=== PATIENT | male | born 1985 | race Caucasian/White ===

== ENCOUNTER → 2021-05-18 09:17 | Outpatient (CLI) | payer OTHER, SELFPAY ==
--- NOTE | ~2021-05-18 | XR_ITS ---
EXAMINATION: XR knee RT 3V DATE: 05/18/2021 09:40 INDICATION: Right knee pain. TECHNIQUE: 3 views of right knee including standing views were obtained. COMPARISON: None. FINDINGS: Bone alignment is normal. No fracture. There is mild osteoarthritis of medial and patellofe moral compartments characterized by tiny osteophytes. No joint space narrowing. No knee joint effusio n. IMPRESSION: 1. Mild right knee osteoarthritis. Reviewed, dictated and finalized at location A.
== END ==
PROVIDERS: PCP Nurse Practitioner Family; Visit Provider Nurse Practitioner Family
DX: M25.561 Pain in right knee (principal); M17.11 Unilateral primary osteoarthritis, right knee
CPT/HCPCS: 73562

== ENCOUNTER 2021-11-27 09:03 | Emergency (ER) | payer OTHER, SELFPAY ==
--- NOTE | 2021-11-27 09:12 | ED.EAR ---
HPI - Ear Problem General Chief complaint: Ear Stated complaint: right ear pain Time Seen by Provider: 11/27/21 09:20 Source: patient Mode of arrival: ambulatory Limitations: no limitations History of Present Illness HPI Narrative: Mr. Slaughter is a 36-year-old male patient presenting to the clinic today with complaints of right ear pain that began this morning. He reports no fever or chills. Related Data Home Medications Medication Instructions Recorded Confirmed risankizumab-rzaa 150 mg/mL mg subcut 11/27/21 subcutaneous syringe (Skyrizi) Allergies Allergy/AdvReac Type Severity Reaction Status Date / Time No Known Allergies Allergy Unknown Verified 11/27/21 09:33 Review of Systems Review of Systems: Pertinent positives per HPI. Patient denies any fever, chills, rash, headache, visual changes, dizziness, cough, runny nose, sore throat, shortness of breath, chest pain, palpitations, nausea, vomiting, diarrhea, constipation, abdominal pain, or any urinary issues. PMFSH Comments At the time of my signature, I reviewed and agree with the nursing past medical, surgical, social, and family history. There is no relevant family history pertinent to the patient complaint. Exam Narrative: General: Well-developed, well nourished, in no apparent distress Head: Normocephalic, atraumatic Eyes: Pupils equally round and reactive to light bilaterally, EOM intact, sclera and conjunctive clear, no discharge, lids normal Ears: Left TM intact and clear, right TM intact, bulging, red with excoriation and swelling to the right ear canal, left ear canal clear, no drainage, grossly hearing normal. Nose: Nares patent, no discharge, no inflammation, no sinus tenderness. Mouth: Oropharynx without lesions or masses, good dentition, MMM. Neck: Supple, trachea midline, no enlargement of anterior or posterior cervical nodes, no thyroid masses or goiter palpable. Cardio: Regular rate and rhythm, s1 and s2 normal, no murmur appreciated. Resp: Clear to auscultation bilaterally anteriorly and posteriorly, no rhonchi, rales, wheezing or rubs Course Course Emergency Course: Portions of this record may have been created with voice recognition software. Level of Care: Express Care Visit Vital Signs Vital signs: Vital Signs Temperature 36.6 C 11/27/21 09:14 Pulse Rate 63 11/27/21 09:14 Respiratory Rate 20 11/27/21 09:14 Blood Pressure 146/91 H 11/27/21 09:14 Pulse Oximetry 99 11/27/21 09:14 Oxygen Delivery Room Air 11/27/21 09:14 Temperature 36.6 C 11/27/21 09:14 Pulse Rate 63 11/27/21 09:14 Respiratory Rate 20 11/27/21 09:14 Blood Pressure 146/91 H 11/27/21 09:14 Pulse Oximetry 99 11/27/21 09:14 Oxygen Delivery Room Air 11/27/21 09:14 Vital signs reviewed Medical Decision Making MDM Narrative Medical decision making narrative: At the time of visit patient is resting comfortably on the exam table. I suspect patient has right otitis media/otitis externa. We will send in prescription for amoxicillin and ofloxacin eardrops. Supportive measures were discussed with the patient he voiced understanding of discharge instructions and agrees to treat Differential Diagnosis Differential Diagnosis: Otalgia, otitis media, otitis externa Vital Signs Vital Signs: Vital Signs Temperature 36.6 C 11/27/21 09:14 Pulse Rate 63 11/27/21 09:14 Respiratory Rate 20 11/27/21 09:14 Blood Pressure 146/91 H 11/27/21 09:14 Pulse Oximetry 99 11/27/21 09:14 Oxygen Delivery Room Air 11/27/21 09:14 Temperature 36.6 C 11/27/21 09:14 Pulse Rate 63 11/27/21 09:14 Respiratory Rate 20 11/27/21 09:14 Blood Pressure 146/91 H 11/27/21 09:14 Pulse Oximetry 99 11/27/21 09:14 Oxygen Delivery Room Air 11/27/21 09:14 Discharge Plan Discharge Clinical Impression: Otitis externa, Otitis media Patient Disposition: Home, Self-Care Condition: Stable Instructions:
[2021-11-27 09:14] VITALS: BP 146/91; PULSE 63; RESP 20; TEMP 36.6; O2SAT 99
== END 2021-11-27 09:55 | disposition home or self-care (01) ==
PROVIDERS: Emergency Provider Nurse Practitioner Family; PCP Nurse Practitioner Family
DX: H60.91 Unspecified otitis externa, right ear (principal); H66.91 Otitis media, unspecified, right ear
CPT/HCPCS: 99213; G0463

== ENCOUNTER 2021-12-07 07:41 | Outpatient (CLI) | payer OTHER, SELFPAY ==
--- NOTE | 2021-12-12 16:51 | WPDHOMESLEEP ---
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 The patient denies awakening from sleep short of breath. He denies awakening at night with heartburn, belching or cough. He occasionally snores but it is rarely loud enough that others complain. He denies having trouble sleeping when he has a cold. He denies waking up gasping for air throughout the night. He denies having breathing problems at night observed by himself or others. He denies sweating excessively at night. He denies having heart palpitations or irregular heartbeats during the night. He denies falling asleep during the day and while driving. He denies sleep paralysis, cataplexy and hypnagogic / hypnopompic hallucinations. He denies having trouble at school or work due to sleepiness. He denies feeling afraid of going to sleep. He rarely has nightmares. He occasionally remembers his dreams. He rarely has thoughts racing through his mind. He denies feeling sad, depressed or anxious. He denies having muscular tension. He denies noticing parts of his body jerk. He denies kicking during the night. He rarely has crawling and aching feelings in his legs but denies having leg pain during the night. He denies grinding his teeth during sleep and denies awakening with morning jaw pain. He is rarely bothered by pain during the day but never awakened by pain during the night. He denies waking up feeling stiff in the morning. He denies waking up with sore achy muscles. He denies waking up with pain in the neck, spine or other joints. He goes to bed at 9:30 p.m. on weekdays and at 11:00 p.m. on the weekends. It takes him 10 minutes to fall asleep. He does not wake up throughout the night typically. He wakes up at 3:30 a.m. on weekdays and at 6:00 a.m. on the weekends. He typically gets 6 hours of sleep per night. He does not stay in bed after waking up in the morning. He currently lives with his and daughter. He does not consume any caffeinated beverages within 2 hours of bedtime. He does not engage in physical exercise before bedtime. He will watch television before falling asleep. He denies taking naps in the afternoon or the evening. He drinks 2 caffeinated beverages per day. He currently smokes 1 and half packs of cigarettes per day. He drinks alcohol socially. He denies recreational drug use. Medications Home Medications Medication Instructions Recorded Confirmed Type amoxicillin 875 mg tablet 875 mg PO Q12H 7 days #14 tabs 11/27/21 Rx ofloxacin 0.3 % eye drops 5 drp otic (ear) BID 7 days #5 mL 11/27/21 Rx risankizumab-rzaa 150 mg/mL mg subcut 11/27/21 History subcutaneous syringe (Norbertyrizi) Sleep Procedure The sleep study was completed using [employer] a technically adequate device with seven channels: peripheral arterial tone, actigraphy, body position, snore, respiratory movement, pulse oximetry, sleep staging, and heart rate. Prior to using the device, the patient received verbal and written instructions for its application and was provided with the help desk phone number for additional telephonic instruction with 24-hour availability of qualified personnel to answer questions. The study was scored using [facility] guidelines. Sleep Architecture The patient had a total recording time of 3 hours 51 minutes and total sleep time of 3 hours 17 minutes. The sleep efficiency was 85.53%. The patient had a sleep latency of 5 minutes and a REM latency of 52 minutes. The patient had 5 awakenings. The patient spent 51.52% of total sleep sukhdeep
[2021-12-12 17:04] VITALS: BMI 41.3
== END 2021-12-08 12:10 | disposition home or self-care (01) ==
LOC: ANHCSM 07:44
PROVIDERS: PCP Nurse Practitioner Family; Visit Provider Nurse Practitioner Family
DX: G47.30 Sleep apnea, unspecified (principal); R06.83 Snoring
CPT/HCPCS: 95800

== ENCOUNTER 2022-01-11 08:25 | Outpatient (CLI) | payer OTHER, SELFPAY ==
--- NOTE | 2022-02-03 09:31 | WPDSLEEPSTUD ---
Sleep Study Date of Study: 01/11/22 Ordering Provider: Ayala Pena, [facility] Interpreting Physician: Sabina Michaels MD Sleep Study Type: Polysomnogram Height: 1.73 m Weight: 126.552 kg Body Mass Index: 42.4 Neck Circumference (inches): 16 [place]: 3 Reason for Sleep Study * Home sleep test on December 07, 2021 which was required for a DOT physical, elevated RDI I with borderline apnea-hypopnea index. Patient presents for in-lab study to evaluate sleep disordered breathing. On the Dec 07 HST, his AHI was 4.3, RDI was 11.2,with only 3 hours and 17 minutes of sleep. Sleep History Galileo Slaughter is a 36-year-old male with psoriasis and tobacco use disorder. He had a home sleep test using WatchPat on 12/07/2021 for a DOT physical.? The patient denies awakening from sleep short of breath.? He denies awakening at night with heartburn, belching or cough.? He occasionally snores but it is rarely loud enough that others complain.? He denies having trouble sleeping when he has a cold.? He denies waking up gasping for air throughout the night.? He denies having breathing problems at night observed by himself or others.? He denies sweating excessively at night.? He denies having heart palpitations or irregular heartbeats during the night.? He denies falling asleep during the day or while driving.? He denies sleep paralysis, weakness of muscle with strong emotions, or vivid dreamlike scenes on waking or falling asleep. ? He denies having trouble at school or work due to sleepiness.? He denies feeling afraid of going to sleep.? He rarely has nightmares.? He occasionally remembers his dreams.? He rarely has thoughts racing through his mind.? He denies feeling sad, depressed or anxious.? He denies having muscular tension.? He denies noticing parts of his body jerk.? He denies kicking during the night.? He rarely has crawling and aching feelings in his legs but denies having leg pain during the night.? He denies grinding his teeth during sleep and denies awakening with morning jaw pain.? He is rarely bothered by pain during the day, however never awakened by pain during the night.? He denies waking up feeling stiff in the morning.? He denies waking up with sore achy muscles.? He denies waking up with pain in the neck, spine or other joints.? Normal bedtime is 9:30 p.m. on weekdays and at 11:00 p.m. on the weekends.? It takes him 10 minutes to fall asleep.? He does not wake up throughout the night typically.? He wakes up at 3:30 a.m. on weekdays and at 6:00 a.m. on the weekends.? He typically gets 6 hours of sleep per night.? He does not stay in bed after waking in the morning.? He currently lives with his and daughter.? He does not consume any caffeinated beverages within 2 hours of bedtime.? He does not engage in physical exercise before bedtime.? He denies taking naps in the afternoon or the evening.? Habits: He drinks 2 caffeinated beverages per day.? He currently smokes 1 and half packs of cigarettes per day.? He drinks alcohol socially.? He denies recreational drug use. [facility] Past Medical History Medical History Psoriasis Medications Home Medications Medication Instructions Recorded Confirmed Type amoxicillin 875 mg tablet 875 mg PO Q12H 7 days #14 tabs 11/27/21 Rx ofloxacin 0.3 % eye drops 5 drp otic (ear) BID 7 days #5 mL 11/27/21 Rx risankizumab-rzaa 150 mg/mL mg subcut 11/27/21 History subcutaneous syringe (Skyrizi) Sleep Procedure This test was performed using the [employer] multiple channel system including EOG, EEG, submental EMG, EKG, nasal and oral airflow using thermistors and nasal pressure sensors, chest and abdominal belts for body position data, and pulse oximetry. Video monitoring was also performed. The study was scored using [facility] guidelines. The patient generally does not sleep on his back at home, spent most of the night on his side. 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
[2022-02-08 12:39] VITALS: BMI 42.4
--- NOTE | 2022-02-15 08:33 | SLEEP ---
pt stated he rc'd results and D.O.T. doesn't require for mild ivan.
== END 2022-01-12 05:18 | disposition home or self-care (01) ==
LOC: ANHCSM 08:27
PROVIDERS: PCP Nurse Practitioner Family; Visit Provider Nurse Practitioner Family
DX: G47.30 Sleep apnea, unspecified (principal)
CPT/HCPCS: 95810

== ENCOUNTER 2022-07-14 08:09 | Outpatient (CLI) | payer OTHER, SELFPAY ==
--- NOTE | 2022-08-01 19:20 | WPDSLEEPSTUD ---
Sleep Study Date of Study: 07/14/22 Ordering Provider: Ayala Pena, [facility]- Interpreting Physician: Gena Perry, DO Sleep Study Type: CPAP Titration Height: 1.75 m Weight: 129.274 kg Body Mass Index: 42.0 Neck Circumference (inches): 16 [place]: 3 Reason for Sleep Study -HST 12/07/21 with AHI 4.3, desaturation to 81% with RDI of 11.2. Due to the discrepancy between AHI and RDI, in-lab Split PSG recommended. -PSG 01/11/22 showed AHI 9.2, desaturation to 74% with 16.4 minutes spent at or below 88%. CPAP Titration recommended. Sleep History Galileo Slaughter is a 37-year-old male with psoriasis and tobacco use disorder.?The patient denies awakening from sleep short of breath.? He denies awakening at night with heartburn, belching or cough.? He occasionally snores but it is rarely loud enough that others complain.? He denies having trouble sleeping when he has a cold.? He denies waking up gasping for air throughout the night.? He denies having breathing problems at night observed by himself or others.? He denies sweating excessively at night.? He denies having heart palpitations or irregular heartbeats during the night.? He denies falling asleep during the day or while driving.? He denies sleep paralysis, weakness of muscle with strong emotions, or vivid dreamlike scenes on waking or falling asleep. ? He denies having trouble at school or work due to sleepiness.? He denies feeling afraid of going to sleep.? He rarely has nightmares.? He occasionally remembers his dreams.? He rarely has thoughts racing through his mind.? He denies feeling sad, depressed or anxious.? He denies having muscular tension.? He denies noticing parts of his body jerk.? He denies kicking during the night.? He rarely has crawling and aching feelings in his legs but denies having leg pain during the night.? He denies grinding his teeth during sleep and denies awakening with morning jaw pain.? He is rarely bothered by pain during the day, however never awakened by pain during the night.? He denies waking up feeling stiff in the morning.? He denies waking up with sore achy muscles.? He denies waking up with pain in the neck, spine or other joints.? Normal bedtime is 9:30 p.m. on weekdays and at 11:00 p.m. on the weekends.? It takes him 10 minutes to fall asleep.? He does not wake up throughout the night typically.? He wakes up at 3:30 a.m. on weekdays and at 6:00 a.m. on the weekends.? He typically gets 6 hours of sleep per night.? He does not stay in bed after waking in the morning.? He currently lives with his and daughter.? He does not consume any caffeinated beverages within 2 hours of bedtime.? He does not engage in physical exercise before bedtime.? He denies taking naps in the afternoon or the evening.? Habits: He drinks 2 caffeinated beverages per day.? He currently smokes 1 and half packs of cigarettes per day.? He drinks alcohol socially.? He denies recreational drug use. [facility] Past Medical History Medical History Psoriasis Medications Home Medications Medication Instructions Recorded Confirmed Type amoxicillin 875 mg tablet 875 mg PO Q12H 7 days #14 tabs 11/27/21 Rx ofloxacin 0.3 % eye drops 5 drp otic (ear) BID 7 days #5 mL 11/27/21 Rx risankizumab-rzaa 150 mg/mL mg subcut 11/27/21 History subcutaneous syringe (Skyrizi) Sleep Procedure This test was performed using the [employer] multiple channel system including EOG, EEG, submental EMG, EKG, nasal and oral airflow using thermistors and nasal pressure sensors, chest and abdominal belts for body position data, and pulse oximetry. Video monitoring was also performed. The study was scored using [facility] guidelines. Sleep Architecture The recording time was 437 minutes. Sleep time 395 minutes. Sleep efficiency 90.4%. Sleep latency 7.9 minutes. REM latency 107 minutes. There were 36 awakenings for an index of 5.5. The patient spent 34
[2022-08-01 19:26] VITALS: BMI 42.0
== END 2022-07-15 05:11 | disposition home or self-care (01) ==
LOC: ANHCSM 08:11
PROVIDERS: PCP Nurse Practitioner Family; Visit Provider Nurse Practitioner Family
DX: G47.30 Sleep apnea, unspecified (principal)
CPT/HCPCS: 95811

== ENCOUNTER 2023-01-01 13:59 | Outpatient (CLI) | payer OTHER, SELFPAY ==
--- NOTE | ~2023-01-01 | US_ITS ---
EXAMINATION: US soft tissue abdomen DATE: 01/01/2023 14:40 INDICATION: Abdominal mass/lump TECHNIQUE: Multiple grayscale and Doppler ultrasound images of the region of concern along the suprau mbilical anterior abdominal wall were obtained. COMPARISON: None FINDINGS: There is a fat-containing ventral hernia which measures 5.1 x 4.0 x 2.7 cm which extends through a 1. 8 x 2.1 cm. There is a small amount of motion artifact into and out of the hernia sac with Valsalva. No evident herniated bowel. IMPRESSION: 1. Moderate-sized fat-containing supraumbilical ventral hernia measuring 5.1 x 4.0 x 2.7 cm. Reviewed, dictated and finalized at location A. [employer]
== END 2023-01-01 14:00 | disposition home or self-care (01) ==
PROVIDERS: PCP Nurse Practitioner Adult Health; Visit Provider Nurse Practitioner Adult Health
DX: R19.00 Intra-abdominal and pelvic swelling, mass and lump, unspecified site (principal); K43.9 Ventral hernia without obstruction or gangrene
CPT/HCPCS: 76705

== ENCOUNTER 2023-08-16 09:19 | Outpatient (CLI) | payer OTHER, SELFPAY ==
[2023-08-16 19:40] LABS: Alanine Aminotransferase 70 U/L (6-50); Alkaline Phosphatase 56 U/L (38-126); Anion Gap 10 mmol/L (4-12); Aspartate Amino Transferase 70 U/L (17-59); Bilirubin,Total 1.4 mg/dL (0.2-1.3); Blood Urea Nitrogen 12 mg/dL (9-20); Calcium 9.7 mg/dL (8.4-10.2); Carbon Dioxide 29 mmol/L (22-30); Chloride 101 mmol/L (98-107); Cholesterol 193 mg/dL (0-200); Estimated Glomerular Filt Rate > 60; Glucose 69 mg/dL (65-110); HDL Direct 34 mg/dL; Potassium 3.9 mmol/L (3.4-5.0); Sodium 140 mmol/L (137-145); Triglycerides 229 mg/dL (<150)
[2023-08-16 19:51] LABS: LDL Cholesterol Direct 123 mg/dL
[2023-08-16 20:15] LABS: Hematocrit 50.6 % (42.0-52.0); Hemoglobin 16.5 g/dL (14.0-18.0); Mean Corpuscular HGB Conc 32.6 g/dl (32-36); Mean Corpuscular Hemoglobin 29.6 pg (26-34); Mean Corpuscular Volume 90.7 fl (80-100); Platelet Count Result 249 k/mm3 (150-375); Red Blood Count 5.58 M/mm3 (4.6-6.20); Red Cell Distribution Width 13.2 % (11.5-14.5); White Blood Count 6.7 K/mm3 (4.5-10.0)
[2023-08-16 22:39] LABS: Hemoglobin A1C 5.9 % (<5.7)
== END 2023-08-16 09:20 | disposition home or self-care (01) ==
PROVIDERS: PCP Nurse Practitioner Adult Health; Visit Provider Nurse Practitioner Adult Health
DX: Z13.9 Encounter for screening, unspecified (principal); M25.562 Pain in left knee; M25.561 Pain in right knee
CPT/HCPCS: 36415; 73562; 80053; 80061; 83036; 84443; 85027

== ENCOUNTER 2023-08-21 15:19 | Outpatient (CLI) | payer OTHER, SELFPAY ==
[2023-08-21 18:30] LABS: Alanine Aminotransferase 78 U/L (6-50); Albumin Level 4.7 g/dL (3.5-5.1); Alkaline Phosphatase 60 U/L (38-126); Aspartate Amino Transferase 76 U/L (17-59); Bilirubin,Total 1.3 mg/dL (0.2-1.3)
== END 2023-08-21 15:20 | disposition home or self-care (01) ==
LOC: ANHBWCLAB 15:23
PROVIDERS: PCP Nurse Practitioner Adult Health; Visit Provider Nurse Practitioner Adult Health
DX: R74.8 Abnormal levels of other serum enzymes (principal)
CPT/HCPCS: 36415; 80076

== ENCOUNTER 2023-09-07 10:11 | Outpatient (CLI) | payer OTHER, SELFPAY ==
--- NOTE | ~2023-09-07 | US_ITS ---
Limited Abdominal Sonogram: Real-time sonographic imaging of the right upper quadrant was performed. Clinical History: Abnormal serum enzyme levels Findings: The liver appears echogenic, with no evidence of mass lesion or bile duct dilatation. Main portal vein demonstrates normal direction of flow. The gallbladder is well distended, and appears no rmal with no evidence of gallstone or wall thickening. The common bile duct measures 6 mm. The visua lized pancreas, aorta, and IVC are unremarkable. Impression: Diffuse fatty infiltration of the liver. Reviewed, dictated and finalized at location M. Impression: Diffuse fatty infiltration of the liver.
== END 2023-09-07 10:12 | disposition home or self-care (01) ==
LOC: ANHIMG 10:12
PROVIDERS: PCP Nurse Practitioner Adult Health; Visit Provider Nurse Practitioner Adult Health
DX: R74.8 Abnormal levels of other serum enzymes (principal); K76.0 Fatty (change of) liver, not elsewhere classified
CPT/HCPCS: 76705

== ENCOUNTER 2023-09-28 21:28 | Emergency (ER) | payer OTHER, SELFPAY ==
[2023-09-28 21:39] VITALS: BP 147/96; PULSE 91; RESP 16; TEMP 36.7; O2SAT 94
== END 2023-09-28 21:39 | disposition left against medical advice (07) ==
PROVIDERS: PCP Nurse Practitioner Adult Health
DX: K42.9 Umbilical hernia without obstruction or gangrene (principal)
CPT/HCPCS: 99199

== ENCOUNTER 2023-12-16 18:23 | Emergency (ER) | payer OTHER, SELFPAY ==
--- NOTE | ~2023-12-16 | XR_ITS ---
EXAMINATION: XR chest 2V Exam Date/Time: 12/16/2023 18:50 CHANNEL SALES MANAGER HISTORY: chest tightness Comparison: None. RESULT: Lines, tubes, and devices: None. Lungs and pleura: Low volume with crowding in the lateral view, otherwise clear. Cardiomediastinal silhouette: Stable. Other: No acute osseous or upper abdominal finding. IMPRESSION: No acute cardiopulmonary process. Reviewed, dictated and finalized at location K. NEL SALES MANAGER
[2023-12-16 18:25] VITALS: BP 150/101; PULSE 108; RESP 20; TEMP 37.1; O2SAT 100
[2023-12-16 18:27] VITALS: BP 156/97
--- NOTE | 2023-12-16 18:43 | ECG_ITS ---
Test Date: 2023-12-16 18:54:56 Measurements Intervals [place] Rate: 99 P: 41 ND: 167 QRS: -3 QRSD: 114 T: 15 QT: 335 QTc: 431 Interpretive Statements SINUS RHYTHM INCOMPLETE RIGHT BUNDLE BRANCH BLOCK BORDERLINE ECG No previous ECG available for comparison Electronically Signed On 12-17-2023 07:00:50 TEST PILOT by Luís Ruggiero D.O.
--- NOTE | 2023-12-16 18:54 | ED_ITS ---
HPI - General Adult General Chief complaint: Upper Respiratory Infection Stated complaint: Blood Pressure Problem/Tightness in Chest Source: patient Mode of arrival: ambulatory Limitations: no limitations History of Present Illness HPI narrative: Pt presents for evaluation of chest tightness. He had one episode last evening while sitting at his desk. He had a feeling of being flushed in the face and like he was getting ready to take the first breath after coming up from being underwater . Symptoms lasted about twenty minutes. He did not experience SOB per se and denies cough. He had a similar episode that occurred today at approximately the same time when sitting at his desk. He thought his symptoms may have been related to gastric reflux. At the present time he is essentially asymptomatic. He has an underlying history of hypertension and hyperlipidemia. He is not diabetic. He was a 1 and half pack per day smoker but changed to vaping several months ago. Denies any illicit drug use. No familial history of heart disease. He ate some chili mac and cheese an hour before symptom onset yesterday and [employer] an hour before his symptoms started tonight. He states his symptoms improved after belching. Related Data Allergies Allergy/AdvReac Type Severity Reaction Status Date / Time No Known Allergies Allergy Unknown Verified 12/16/23 18:44 Review of Systems Review of Systems: CONSTITUTIONAL: Reports feeling flushed earlier, now resolved. Denies fever, chills, or sweats. EYES: Denies visual changes, redness, or discharge. ENT: Denies rhinorrhea, congestion, sore throat, or otalgia. CARDIOVASCULAR: Reports chest tightness earlier, now resolved. Denies palpitations, or edema. RESPIRATORY: Reports sensation of taking of 1st breath after coming up from being underwater earlier, which has since resolved. Denies SOB and cough GASTROINTESTINAL: Denies abdominal pain, nausea, vomiting, or diarrhea. GENITOURINARY: Denies dysuria or hematuria. SKIN: Denies rash or itching. MUSCULOSKELETAL: Denies back pain, joint pain, or myalgia. NEUROLOGIC: Denies headache, numbness, dizziness, or weakness. PSYCHIATRIC: Denies anxiety or depression. [facility] Past Medical History Medical History Hyperlipidemia Hypertension PORFIRIO (obstructive sleep apnea) Psoriasiform dermatitis Psoriasis Surgical History Surgical History No pertinent past surgical history Family History Family History Father History of ETOH abuse Social History Social History (Updated 12/16/23 @ 19:00 by Jonathan Grider [facility], ) Smoking packs per day: 1 Smoking cigarettes per day: 20.0 Smoking status: Current every day smoker Tobacco type: e-cigarettes/vaping Alcohol intake: never Substance use: never Lack of Transportation: No Lack of Food: Never True Current Housing: I Have Housing Concerned About Future Housing: No Difficulty Paying Gas/Electric Bills: No Difficulty Paying for Meds: No Currently Unemployed: No Education: High School Diploma/GED Living arrangements: with family Occupation/Education: occupation 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 HEAD: Normocephalic, atraumatic. EYES: PERRLA and EOMI. ENT: Nares clear, no rhinorrhea or epistaxis. Mucous membranes moist. Oropharynx without tonsillar hypertrophy exudate or other lesions. Bilateral TMs pearly brock nonbulging NECK: Supple. No adenopathy or masses. No carotid bruits or JVD CHEST: Clear to auscultation. No respiratory distress. No wheezes rales or rhonchi HEART: Regular rate and rhythm. No murmur heard. Normal peripheral pulses. ABDOMEN: Soft, nontender, nondistended, normal active bowel sounds. EXTREMITIES: Normal range of motion. No edema. SKIN: Warm, dry, no rash. NEURO: No focal deficits. Alert and oriented x3. PSYCH: Normal mood and affect. Course Course Emergency Course: This is a 38-year-old male who presented for evaluation of feeling flushed and experiencing chest tightness after eating high fat foods. His CXR here was normal. EKG showed right bundle-branch block. On reassessment, his symptoms completely or resolved. I recommended he have some lifestyle modifications in terms of the choices of foods he is selecting. His symptoms are consistent with GERD, however I did instruct him that if he experiences chest pain he needs to go to the ER. He should call his PCP tomorrow. Will start PPI and advised he follow a bland diet in the meantime. Pt in agreement with plan of care. Level of Care: Express Care Visit Vital Signs Vital signs: Vital Signs Temperature 37.1 C 12/16/23 18:25 Pulse Rate 108 H 12/16/23 18:25 Respiratory Rate 20 12/16/23 18:25 Blood Pressure 150/101 H 12/16/23 18:25 Pulse Oximetry 100 12/16/23 18:25 Oxygen Delivery Room Air 12/16/23 18:25 Temperature 37.1 C 12/16/23 18:25 Pulse Rate 108 H 12/16/23 18:25 Respiratory Rate 20 12/16/23 18:25 Blood Pressure 156/97 H 12/16/23 18:27 Pulse Oximetry 100 12/16/23 18:25 Oxygen Delivery Room Air 12/16/23 18:25 Medical Decision Making Vital Signs Vital Signs: Vital Signs Temperature 37.1 C 12/16/23 18:25 Pulse Rate 108 H 12/16/23 18:25 Respiratory Rate 20 12/16/23 18:25 Blood Pressure 150/101 H 12/16/23 18:25 Pulse Oximetry 100 12/16/23 18:25 Oxygen Delivery Room Air 12/16/23 18:25 Temperature 37.1 C 12/16/23 18:25 Pulse Rate 108 H 12/16/23 18:25 Respiratory Rate 20 12/16/23 18:25 Blood Pressure 156/97 H 12/16/23 18:27 Pulse Oximetry 100 12/16/23 18:25 Oxygen Delivery Room Air 12/16/23 18:25 Imaging Data Radiologist's impression: EXAMINATION: XR chest 2V Exam Date/Time: 12/16/2023 18:50 EMERGENCY MANAGEMENT SYSTEM DIRECTOR HISTORY: chest tightness Comparison: None. RESULT: Lines, tubes, and devices: None. Lungs and pleura: Low volume with crowding in the lateral view, otherwise clear. Cardiomediastinal silhouette: Stable. Other: No acute osseous or upper abdominal finding. IMPRESSION: No acute cardiopulmonary process. ECG Data EKG #1: ECG completion date: 12/16/23 ECG completion time: 18:54 Interpretation: Sinus rhythm, rate 99, incomplete right bundle branch block Discharge Plan Discharge Clinical Impression: GERD (gastroesophageal reflux disease), Chest tightness Patient Disposition: Home, Self-Care Condition: Stable Instructions: Antibiotic Form, Chest Pain (ED), GERD (Gastroesophageal Reflux Disease) (ED) Additional Instructions: FOLLOW A BLAND DIET IF YOU HAVE ACTIVE CHEST PAIN, PLEASE GO TO THE EMERGENCY DEPARTMENT Patient Language: Hebrew Prescriptions: New pantoprazole [Protonix] 40 mg tablet,delayed release (DR/EC) 40 mg PO QAM Qty: 14 0RF No Action lisinopril 10 mg tablet 10 mg PO DAILY Qty: 90 3RF Follow-up/Referrals: Dee Bueno APRN [Primary Care Provider] - Time of Disposition: 19:45
== END 2023-12-16 19:50 | disposition home or self-care (01) ==
PROVIDERS: Emergency Provider Nurse Practitioner; PCP Nurse Practitioner Adult Health
DX: K21.9 Gastro-esophageal reflux disease without esophagitis (principal); R07.89 Other chest pain; F17.290 Nicotine dependence, other tobacco product, uncomplicated; E78.5 Hyperlipidemia, unspecified; I10 Essential (primary) hypertension; L40.9 Psoriasis, unspecified
CPT/HCPCS: 71046; 93005; 99213; G0463

== ENCOUNTER 2024-03-11 09:24 | Outpatient (CLI) | payer OTHER, SELFPAY ==
--- OUTSIDE RECORDS SUMMARY | 2024-03-11 09:57 | XMS_ITS | Referral Summary ---
Author Organization [facility] Address [address] [place] [address] Care Team Providers Care Sign Language Interpreter Name Role Phone Unavailable Primary Care Provider Unavailabl e Source Comments [facility],non-owned Affiliates and Associated Physician Practices is amultiple site organization consisting of ambulatory clinics and hospital sitesin [place], [place], [place] and [place]. This disclosure is being madepursuant to the Care Everywhere program and may not contain all information available regarding this patient. Last updated 17.[facility] Allergies No known active allergies Medications Be aware that medications may not be up to date on this document. Always verify current medications with the patient. No known medications Social History Tobacco Use Types Packs/Day Years Used Date Smoking Tobacco: Every Day Cigarettes 1 16 Smokeless Tobacco: Never Sex and Gender Information Value Date Recorded Sex Assigned at Not on file Gender Identity Not on file Sexual Orientation Not on file Last Filed Vital Signs Vital Sign Reading Time Taken Comments Blood Pressure 120/70 09/08/2018 3:24 PM CDT Pulse 68 09/08/2018 3:24 PM CDT Temperature 36.6 ??C (97.9 ??F) 09/08/2018 3:24 PM CD T Respiratory Rate 18 09/08/2018 3:24 PM CDT Oxygen Saturation - - Inhaled Oxygen Concentration - - Weight 108.9 kg (240 lb) 09/08/2018 3:24 PM CDT Height 175.3 cm (5' 9 ) 09/08/2018 3:24 PM CDT Body Mass Index 35.44 09/08/2018 3:24 PM CDT Plan of Treatment Not on file Administered Medications
--- OUTSIDE RECORDS SUMMARY | 2024-03-11 09:57 | XMS_ITS | Patient Health Summary ---
Author Organization [facility] Address [address] [place] [address] Care Team Providers Care Peanut Farmer Name Role Phone Unavailable Primary Care Provider Unavailabl e Note from [facility],non-owned Affiliates and Associated Physician Practices is amultiple site organization consisting of ambulatory clinics and hospital sitesin [place], [place] and [place]. This disclosure is being madepursuant to the Care Everywhere program and may not contain all information available regarding this patient. Last updated 17.[facility] Allergies No known active allergies Medications Be [...] Mass Index 35.44 09/08/2018 3:24 PM CDT Procedures * STREP A SCREEN - POINT OF CARE (AMB) STL(Performed 09/08/2018) Performed for Acute pharyngitis, unspecified etiology * SKIN TEST PPD - POINT OF CARE(Performed 08/16/2017) Performed for PPD screening test Results * STREP A SCREEN - POINT OF CARE (AMB) STL (09/08/2018) Strep A Rapid POCT Negative Negative Strep A Internal Control Present Lot # [id number] Expiration Date [id number] Throat ENTIRE THROAT (SURFACE REGION OF NECK) / Unknown 09/08/2018 Mena Roque APRN-[facility] - POINT OF CARE ORDERABLES * SKIN TEST PPD - POINT OF CARE (08/16/2017) PPD 0mm Comment:No induration. Paper signed, scanned into chart and returned to patient Other MISCELLANEOUS SAMPLE S / Unknown 08/16/2017 Em Beltran APRN-[facility] - POINT OF CARE ORDERABLES
--- OUTSIDE RECORDS SUMMARY | 2024-03-11 09:57 | XMS_ITS | Clinical Summary ---
Author Organization [facility] Address [address] [place] [address] Care Team Providers Care Database Developer Name Role Phone Unavailable Primary Care Provider Unavailabl e Source Comments [facility],non-owned Affiliates and Associated Physician Practices is amultiple site organization consisting of ambulatory clinics and hospital sitesin [place], [place], [place] and [place]. This disclosure is being madepursuant to the Care Everywhere program and may not contain all information available regarding this patient. Last updated 17.[facility] Allergies No known active allergies Medications Be [...] 09/08/2018 3:24 PM CDT Plan of Treatment Health Maintenance Due Date Last Done Comments HIV SCREENING 2000 HEPATITIS C SCREENING 02/27/2003 DTAP/TDAP/TD VACCINES (1 - Tdap) 2004 HEPATITIS B VACCINE (1 of 3 - 19+ 3-dose series) 2004 PNEUMOCOCCAL VACCINE (1 of 2 - PCV) 2004 COVID-19 VACCINE (1 - 2023-2 5 season) 2023 INFLUENZA VACCINE (#1) 2023 DEPRESSION SCREENING 02/06/2024 ZOSTER VACCINE (1 of 2) 2035 HIB VACCINE Aged Out No longer eligi ble based on patient's age to complete this topic HPV VACCINE Aged Out No longer eligi ble based on patient's age to complete this topic MENINGOCOCCAL (Group B) VACCINE Aged Out No longer eligible based on patient's age to complete this topic MENINGOCOCCAL VACCINE Aged Out No delia ryan eligible based on patient's age to complete this topic
[2024-03-11 18:50] LABS: Basophils Absolute Auto 0.1 K/mm3 (0.0-0.1); Basophils Percent Auto 0.8 % (0.2-1.2); Eosinophils Absolute Auto 0.1 K/mm3 (0-0.3); Eosinophils Percent Auto 1.6 % (0-4.4); Hematocrit 48.1 % (42.0-52.0); Hemoglobin 15.9 g/dL (14.0-18.0); Immature Granulocyte Absolute 0.03 K/mm3 (0.00-0.031); Immature Granulocyte Percent A 0.5 % (0-0.5); Lymphocytes Absolute Auto 1.86 K/mm3 (0.9-3.2); Lymphocytes Percent Auto 29.8 % (18.3-44.2); Mean Corpuscular HGB Conc 33.1 g/dl (32-36); Mean Corpuscular Hemoglobin 29.2 pg (26-34); Mean Corpuscular Volume 88.4 fl (80-100); Mean Platelet Volume 10.9 fl (7.4-10.4); Monocytes Absolute Auto 0.5 K/mm3 (0.1-0.6); Neutrophils Absolute Auto 3.7 K/mm3 (1.3-6.7); Neutrophils Percent Auto 59.3 % (45.5-73.1); Platelet Count Result 247 k/mm3 (150-375); Red Blood Count 5.44 M/mm3 (4.6-6.20); White Blood Count 6.2 K/mm3 (4.5-10.0)
[2024-03-11 19:04] LABS: Alanine Aminotransferase 75 U/L (6-50); Albumin Level 4.7 g/dL (3.5-5.1); Alkaline Phosphatase 54 U/L (38-126); Anion Gap 12 mmol/L (4-12); Aspartate Amino Transferase 63 U/L (17-59); Bilirubin,Total 1.9 mg/dL (0.2-1.3); Blood Urea Nitrogen 17 mg/dL (9-20); Calcium 9.8 mg/dL (8.4-10.2); Carbon Dioxide 27 mmol/L (22-30); Chloride 98 mmol/L (98-107); Cholesterol 201 mg/dL (0-200); Estimated Glomerular Filt Rate > 60; Glucose 120 mg/dL (65-110); HDL Direct 31 mg/dL; Potassium 4.2 mmol/L (3.4-5.0); Sodium 137 mmol/L (137-145); Triglycerides 249 mg/dL (<150)
[2024-03-11 19:15] LABS: LDL Cholesterol Direct 128 mg/dL
[2024-03-11 19:53] LABS: Erythrocyte Sedimentation Rate 3 mm/hr (0-20)
[2024-03-11 20:49] LABS: Hemoglobin A1C 6.2 % (<5.7)
[2024-03-13 04:55] LABS: ANA Cascade Screen NEGATIVE (NEGATIVE)
== END 2024-03-11 09:25 | disposition home or self-care (01) ==
LOC: ANHBWCLAB 09:25
PROVIDERS: PCP Nurse Practitioner Adult Health; Visit Provider Nurse Practitioner Adult Health
DX: E78.5 Hyperlipidemia, unspecified (principal); M25.50 Pain in unspecified joint; Z13.9 Encounter for screening, unspecified
CPT/HCPCS: 36415; 80053; 80061; 82607; 83036; 85025; 85652; 86038; 86225; 86235; 86364

== ENCOUNTER 2024-05-31 18:47 | Emergency (ER) | payer OTHER, SELFPAY ==
--- OUTSIDE RECORDS SUMMARY | 2024-05-31 18:49 | XMS_ITS | Clinical Summary ---
Author Organization [facility] Address [address] [place] [address] Care Team Providers Care Senior Executive Assistant Name Role Phone Unavailable Primary Care Provider Unavailabl e Source Comments [facility],non-owned Affiliates and Associated Physician Practices is amultiple site organization consisting of ambulatory clinics and hospital sitesin [place], [place], [place] and [place]. This disclosure is being madepursuant to the Care Everywhere program and may not contain all information available regarding this patient. Last updated 17.[facility] Allergies No known active allergies Medications * Be aware that medications may not be up to date on this document. Alwaysverify current medications with the patient. No known medications Social History Tobacco Use Types Packs/Day Years Used Date Smoking Tobacco: Every Day Cigarettes 1 16 Smokeless Tobacco: Never Sex and Gender Information Value Date Recorded Sex Assigned at Not on file Legal Sex Male 12:53 PM CDT Gender Identity Not on file Sexual Orientation Not on file Last Filed Vital Signs Vital Sign Reading Time Taken Comments Blood Pressure 120/70 09/08/2018 3:24 PM CDT Pulse 68 09/08/2018 3:24 PM CDT Temperature 36.6 C (97.9 F) 09/08/2018 3:24 PM CDT Respiratory Rate 18 09/08/2018 3:24 PM CDT [...] of 3 - 19+ 3-dose series) 2004 COVID-19 VACCINE (1 - 2023-2 5 season) 2023 DEPRESSION SCREENING 02/06/2024 INFLUENZA VACCINE (Season Ended) 2024 ZOSTER VACCINE (1 of 2) 2035 HIB VACCINE Aged Out No longer eligi ble based on patient's age to complete this topic HPV VACCINE Aged Out No longer eligi ble based on patient's age to complete this topic MENINGOCOCCAL (Group B) VACC INE SHARED DECISION-MAKING Aged Out No longer eligibl e based on patient's age to complete this topic MENINGOCOCCAL GROUPS A/C/Y/W VACCINE Aged Out No longer eligible b ased on patient's age to complete this topic PNEUMOCOCCAL VACCINE Aged Out No long er eligible based on patient's age to complete this topic [place] [address] [facility] Address: [facility] [id number] [place] [id number]
[2024-05-31 18:51] VITALS: BP 153/88; PULSE 74; RESP 16; TEMP 36.8; O2SAT 100
--- NOTE | 2024-05-31 19:27 | ED.GENADULT ---
HPI - General Adult General Chief complaint: Unspecified Stated complaint: Throat Pain/Pain to Arms and Back Source: patient Mode of arrival: ambulatory Limitations: no limitations History of Present Illness HPI narrative: Patient presents for suboptimally controlled GERD. He indicates he has a history of GERD for which he takes pantoprazole. Over the course the last 4-5 days it has lost efficacy. He has tried taking TUMS without much improvement. Reports a burning sensation in his throat. He denies chest pain or shortness of breath. He indicates his primary care provider recently told him to avoid greasy or fried foods. He reports difficulty following these instructions. He also recently switch from smoking to vaping. He states his primary care provider is planning on having him get an EGD. He denies any abdominal pain, nausea, vomiting, change in bowel pattern. Related Data Allergies Allergy/AdvReac Type Severity Reaction Status Date / Time No Known Allergies Allergy Unknown Verified 05/31/24 18:57 Review of Systems Review of Systems: CONSTITUTIONAL: Denies fever, chills, or sweats. EYES: Denies visual changes, redness, or discharge. ENT: Denies rhinorrhea, congestion, sore throat, or otalgia. CARDIOVASCULAR: Denies chest pain, palpitations, or edema. RESPIRATORY: Denies cough or dyspnea. GASTROINTESTINAL: Reports acid reflux with burning sensation in his throat. Denies abdominal pain, nausea, vomiting, or diarrhea. GENITOURINARY: Denies dysuria or hematuria. SKIN: Denies rash or itching. MUSCULOSKELETAL: Denies back pain, joint pain, or myalgia. NEUROLOGIC: Denies headache, numbness, dizziness, or weakness. PSYCHIATRIC: Denies anxiety or depression. [facility] Past Medical History Medical History Chronic GERD PORFIRIO (obstructive sleep apnea) Hyperlipidemia Hypertension Psoriasiform dermatitis Psoriasis Surgical History Surgical History No pertinent past surgical history Family History Family History Father History of ETOH abuse Social History Social History Smoking packs per day: 1 Smoking cigarettes per day: 20.0 Smoking status: Current every day smoker Tobacco type: e-cigarettes/vaping Alcohol intake: never Substance use: never Lack of Transportation: No Lack of Food: Never True Current Housing: I Have Housing Concerned About Future Housing: No Difficulty Paying Gas/Electric Bills: No Difficulty Paying for Meds: No Currently Unemployed: No Education: High School Diploma/GED Living arrangements: with family Occupation/Education: occupation 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 HEAD: Normocephalic, atraumatic. EYES: PERRLA and EOMI. ENT: Nares clear, no rhinorrhea or epistaxis. Mucous membranes moist. Oropharynx without tonsillar hypertrophy exudate or other lesions. Bilateral TMs pearly brock nonbulging NECK: Supple. No adenopathy or masses. No carotid bruits or JVD CHEST: Clear to auscultation. No respiratory distress. No wheezes rales or rhonchi HEART: Regular rate and rhythm. No murmur heard. Normal peripheral pulses. ABDOMEN: Soft, nontender, nondistended, normal active bowel sounds. EXTREMITIES: Normal range of motion. No edema. SKIN: Warm, dry, no rash. NEURO: No focal deficits. Alert and oriented x3. PSYCH: Normal mood and affect. Course Course Emergency Course: This is a 39-year-old male who presented for evaluation suboptimally controlled GERD. I provided him with education regarding triggering foods. He verbalized understanding. He may take Pepcid or relates to assist with the symptoms and should call his primary care provider Sunday to determine whether they would be okay with him increasing his pantoprazole to twice daily. He has no abdominal pain warranting labs or imaging. He has no change in bowel pattern. He will follow-up with his primary care provider Sunday go to the ER for worsening symptoms. Patient in agreement with plan of care. Level of Care: Express Care Visit Vital Signs Vital signs: Vital Signs Temperature 36.8 C 05/31/24 18:51 Pulse Rate 74 05/31/24 18:51 Respiratory Rate 16 05/31/24 18:51 Blood Pressure 153/88 H 05/31/24 18:51 Pulse Oximetry 100 05/31/24 18:51 Oxygen Delivery Room Air 05/31/24 18:51 Temperature 36.8 C 05/31/24 18:51 Pulse Rate 74 05/31/24 18:51 Respiratory Rate 16 05/31/24 18:51 Blood Pressure 153/88 H 05/31/24 18:51 Pulse Oximetry 100 05/31/24 18:51 Oxygen Delivery Room Air 05/31/24 18:51 Medical Decision Making Vital Signs Vital Signs: Vital Signs Temperature 36.8 C 05/31/24 18:51 Pulse Rate 74 05/31/24 18:51 Respiratory Rate 16 05/31/24 18:51 Blood Pressure 153/88 H 05/31/24 18:51 Pulse Oximetry 100 05/31/24 18:51 Oxygen Delivery Room Air 05/31/24 18:51 Temperature 36.8 C 05/31/24 18:51 Pulse Rate 74 05/31/24 18:51 Respiratory Rate 16 05/31/24 18:51 Blood Pressure 153/88 H 05/31/24 18:51 Pulse Oximetry 100 05/31/24 18:51 Oxygen Delivery Room Air 05/31/24 18:51 Discharge Plan Discharge Clinical Impression: GERD (gastroesophageal reflux disease) Patient Disposition: Home Condition: Stable Instructions: Antibiotic Form, GERD (Gastroesophageal Reflux Disease) (DC) Additional Instructions: TAKE PANTOPRAZOLE 30 MINUTES BEFORE EATING OR DRINKING IN THE MORNING AVOID THE FOLLOWING TO REDUCE YOUR SYMPTOMS: ALCOHOL, COFFEE, CAFFEINE, GREASY/FRIED FOODS, SPICY FOODS, CHOCOLATE, RED SAUCE, CITRUS, SMOKING AND VAPING FOLLOW A BLAND DIET FOR NOW SUCH BANANAS, RICE, TOAST YOU MAY TRY PEPCID 20MG TWICE DAILY OR ROLAIDS FOR YOUR SYMPTOMS PLEASE CALL YOUR PRIMARY CARE PROVIDER SUNDAY TO ASK WHETHER IT WOULD BE OKAY TO TAKE PANTOPRAZOLE 40MG TWICE DAILY UNTIL YOUR ENDOSCOPY IF YOU HAVE CHEST PAIN OR SHORTNESS OF BREATH, PLEASE GO TO THE ER Patient Language: Brazilian Prescriptions: No Action lisinopril 10 mg tablet 10 mg PO DAILY Qty: 90 3RF Zepbound 2.5 mg/0.5 mL pen injector 2.5 mg subcut WEEKLY Qty: 2 0RF Rx Instructions: for 4 weeks pantoprazole 40 mg tablet,delayed release (DR/EC) See Rx Instructions .ROUTE .COMPLEX Qty: 30 3RF Dose Instruction: TAKE 1 TABLET BY MOUTH EVERY MORNING Rx Instructions: TAKE 1 TABLET BY MOUTH EVERY MORNING Follow-up/Referrals: Dee Bueno APRN [Primary Care Provider] - Time of Disposition: 19:14
== END 2024-05-31 19:17 | disposition home or self-care (01) ==
PROVIDERS: Emergency Provider Nurse Practitioner; PCP Nurse Practitioner Adult Health
DX: K21.9 Gastro-esophageal reflux disease without esophagitis (principal); F17.290 Nicotine dependence, other tobacco product, uncomplicated; I10 Essential (primary) hypertension; E78.5 Hyperlipidemia, unspecified; L40.9 Psoriasis, unspecified
CPT/HCPCS: 99211; G0463

== ENCOUNTER 2024-06-03 09:30 | Outpatient (CLI) | payer OTHER, SELFPAY ==
--- OUTSIDE RECORDS SUMMARY | 2024-06-03 10:22 | XMS_ITS | Clinical Summary ---
Author Organization [facility] Address [address] [place] [address] Care Team Providers Care Racetrack Steward Name Role Phone Unavailable Primary Care Provider Unavailabl e Source Comments [facility],non-owned Affiliates and Associated Physician Practices is amultiple site organization consisting of ambulatory clinics and hospital sitesin [place], [place], [place] and [place]. This disclosure is being madepursuant to the Care Everywhere program and may not contain all information available regarding this patient. Last updated 17.[facility] Allergies No known active allergies Medications * [...] patient's age to complete this topic Insurance [place] [address]
[2024-06-03 20:49] LABS: Alanine Aminotransferase 63 U/L (6-50); Alkaline Phosphatase 44 U/L (38-126); Amylase 60 U/L (30-110); Anion Gap 10 mmol/L (4-12); Aspartate Amino Transferase 88 U/L (17-59); Bilirubin,Total 2.4 mg/dL (0.2-1.3); Blood Urea Nitrogen 15 mg/dL (9-20); Calcium 9.6 mg/dL (8.4-10.2); Carbon Dioxide 27 mmol/L (22-30); Chloride 101 mmol/L (98-107); Estimated Glomerular Filt Rate > 60; Glucose 99 mg/dL (65-110); Lipase 118 U/L (23-300); Potassium 4.8 mmol/L (3.4-5.0); Sodium 138 mmol/L (137-145)
== END 2024-06-03 09:31 | disposition home or self-care (01) ==
LOC: ANHBWCLAB 09:30
PROVIDERS: PCP Nurse Practitioner Adult Health; Visit Provider Nurse Practitioner Adult Health
DX: R14.0 Abdominal distension (gaseous) (principal)
CPT/HCPCS: 36415; 80053; 82150; 83690

== ENCOUNTER 2024-06-16 00:18 | Day surgery (SDC) | payer OTHER, SELFPAY ==
[2024-06-04 14:59] VITALS: BMI 44.2
--- OUTSIDE RECORDS SUMMARY | 2024-06-16 00:21 | XMS_ITS | Clinical Summary ---
Author Organization [facility] [employer] Address [address] [place] [address] Care Team Providers Care Squaring Shear Operator Name Role Phone Unavailable Primary Care Provider Unavailabl e Source Comments [facility] [employer],non-owned Affiliates and Associated Physician Practices is amultiple site organization consisting of ambulatory clinics and hospital sitesin [place], [place], [place] and [place]. This disclosure is being madepursuant to the Care Everywhere program and may not contain all information available regarding this patient. Last updated 17.[facility] [employer] Allergies No known active allergies Medications * [...] patient's age to complete this topic [place] [address] [place] [address]
--- NOTE | 2024-06-16 08:35 | P.PNAN_ITS ---
Anes - Initial Pre Proc Eval Procedure: Operation Date: 06/16/24 09:45 Proposed Procedures p Esophagogastroduodenoscopy - Bao Bales MD Date/Time: 06/16/24 08:35 Surgeon: Bao Bales MD Pre Op Diagnosis: GERD Patient Data Age: 39 Gender: M Height: 1.75 m Weight: 135.9 kg Allergies Allergy/AdvReac Type Severity Reaction Status Date / Time No Known Allergies Allergy Unknown Verified 06/04/24 14:57 Home Medications ?Medication ?Instructions ?Recorded ?Confirmed ?Type lisinopril 10 mg tablet 10 mg PO DAILY #90 tabs 09/17/23 06/04/24 Rx tirzepatide (weight loss) 2.5 2.5 mg (0.5 mL) subcut WEEKLY #2 mL 05/29/24 06/04/24 Rx mg/0.5 mL subcutaneous pen injector (Zepbound) pantoprazole 40 mg tablet,delayed 40 mg PO BID #60 tabs 06/03/24 06/04/24 Rx release risankizumab-rzaa 150 mg/mL 150 mg subcut .every 3 months 06/04/24 06/04/24 History subcutaneous pen injector (Skyrizi) Patient hx anesthesia problems: none Family hx anesthesia problems: none Results Review: All pre-operative results and documents have been reviewed as part of the pre- operative evaluation. [facility] Past Medical History Medical History Chronic GERD PORFIRIO (obstructive sleep apnea) Hyperlipidemia Hypertension Psoriasiform dermatitis Psoriasis Surgical History Surgical History No pertinent past surgical history Family History Family History Father History of ETOH abuse Social History Social History Smoking packs per day: 1 Smoking cigarettes per day: 20.0 Smoking status: Current every day smoker Tobacco type: e-cigarettes/vaping Alcohol intake: never Drinks per week: 1 Alcohol use details: socially Substance use: never Lack of Transportation: No Lack of Food: Never True Current Housing: I Have Housing Concerned About Future Housing: No Difficulty Paying Gas/Electric Bills: No Difficulty Paying for Meds: No Currently Unemployed: No Education: High School Diploma/GED Living arrangements: with family Occupation/Education: occupation 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[employer] Gender identity (if verbalized by the patient): Male Spiritual care concerns: No Agree to blood products: Yes Anes - Eval Final PreProcedure Day of Procedure 06/16/24 08:35 Patient weight: morbidly obese Heart: regular rate and rhythm Lungs: clear to auscultation Airway: Mallampati scale class II Neurological: alert and oriented Last oral intake: >/= 8 hours ASA classification: III Emergent: no Anesthetic plan: proceed Anesthesia type and monitoring: general GIVS and standard monitoring Results Review: All pre-operative results and documents have been reviewed as part of the pre- operative evaluation. Informed Consent: The patient's anesthetic plan and its attendant risks and benefits were discussed with the patient/family/POA. Questions were solicited and answers provided to the satisfaction of the patient/family/POA.
[2024-06-16 08:37] VITALS: BP 152/93; PULSE 66; RESP 20; TEMP 36.6; O2SAT 100; BMI 44.1
[2024-06-16] MEDS: LACTATED RINGERS 1,000 ML 150 ML IV CONT (08:43)
--- NOTE | 2024-06-16 08:57 | P.HP_ITS ---
History of Present Illness History of Present Illness Consent: Risks, benefits, and alternatives have been discussed and questions answered. Patient agrees to proceed with procedure. Chief complaint: GERD Narrative: SAMMI Slaughter is a 39 year old male here for first EGD, gerd but better since using pantoprazole Review of Systems Review of Systems: All systems reviewed & are unremarkable except as noted in HPI and below PMFSH Past Medical History Medical History Chronic GERD PORFIRIO (obstructive sleep apnea) Hyperlipidemia Hypertension Psoriasiform dermatitis Psoriasis Surgical History Surgical History No pertinent past surgical history Family History Family History Father History of ETOH abuse Social History Social History Smoking packs per day: 1 Smoking cigarettes per day: 20.0 Smoking status: Current every day smoker Tobacco type: e-cigarettes/vaping Alcohol intake: never Drinks per week: 1 Alcohol use details: socially Substance use: never Lack of Transportation: No Lack of Food: Never True Current Housing: I Have Housing Concerned About Future Housing: No Difficulty Paying Gas/Electric Bills: No Difficulty Paying for Meds: No Currently Unemployed: No Education: High School Diploma/GED Living arrangements: with family Occupation/Education: occupation 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 Gender identity (if verbalized by the patient): Male Spiritual care concerns: No Agree to blood products: Yes Meds Home Medications and Allergies Home Medications ?Medication ?Instructions ?Recorded ?Confirmed ?Type lisinopril 10 mg tablet 10 mg PO DAILY #90 tabs 09/17/23 06/16/24 Rx tirzepatide (weight loss) 2.5 2.5 mg (0.5 mL) subcut WEEKLY #2 mL 05/29/24 06/04/24 Rx mg/0.5 mL subcutaneous pen injector (Zepbound) pantoprazole 40 mg tablet,delayed 40 mg PO BID #60 tabs 06/03/24 06/16/24 Rx release risankizumab-rzaa 150 mg/mL 150 mg subcut .every 3 months 06/04/24 06/04/24 History subcutaneous pen injector (Skyrizi) Allergies Allergy/AdvReac Type Severity Reaction Status Date / Time No Known Allergies Allergy Unknown Verified 06/16/24 08:36 Vital Signs Vital Signs - 24 hr 06/16/24 08:37 Temperature 97.9 F Pulse Rate 66 Respiratory Rate 20 Blood Pressure 152/93 H Pulse Oximetry 100 Oxygen Delivery Room Air Exam Const: General: comfortable and no acute distress Nutritional Appearance: obese HENMT: Face/Nose/Sinus: Normal nares present Eyes: General: appearance normal, both eyes and all related structures Neck: Neck: no JVD Resp: Auscultation: clear to auscultation bilaterally Cardio: Rate: regular rate Rhythm: regular rhythm GI: Inspection: non-distended GI Palp: Yes Soft to palpation Skin: General skin exam: normal color Neuro: General: gait normal Speech: normal speech Extrem: General: normal to inspection Psych: Mental Status: mental status grossly normal Assessment and Plan Assessment and plan (1) Chronic GERD: Code(s): K21.9 - Gastro-esophageal reflux disease without esophagitis Status: Acute Assessment and Plan: egd with bx on ppi (2) Abdominal bloating: Code(s): R14.0 - Abdominal distension (gaseous) Status: Acute
[2024-06-16 09:07] VITALS: BP 106/61; PULSE 54; RESP 22; O2SAT 100
[2024-06-16 09:17] VITALS: BP 106/68; PULSE 51; RESP 20; O2SAT 98
[2024-06-16 09:27] VITALS: BP 133/77; PULSE 60; RESP 20; O2SAT 97
== END 2024-06-16 09:35 | disposition home or self-care (01) ==
PROVIDERS: PCP Nurse Practitioner Adult Health; Referring Provider Nurse Practitioner Adult Health; Visit Provider Internal Medicine Gastroenterology
PROC: 0DJ08ZZ Inspection of Upper Intestinal Tract, Via Natural or Artificial Opening Endoscopic (ICD-10-PCS; CPT 43239; principal; 2024-06-16 09:45)
DX: K21.9 Gastro-esophageal reflux disease without esophagitis (principal); R14.0 Abdominal distension (gaseous); F17.290 Nicotine dependence, other tobacco product, uncomplicated; E66.01 Morbid (severe) obesity due to excess calories; Z68.41 Body mass index [BMI] 40.0-44.9, adult
CPT/HCPCS: 43239; 88305; J2003; J2704; J7120

== ENCOUNTER 2024-09-09 17:12 | Emergency (ER) | payer OTHER, SELFPAY ==
--- OUTSIDE RECORDS SUMMARY | 2024-09-09 17:13 | XMS_ITS | Clinical Summary ---
Author Organization [facility] [employer] Address [address] [place] [address] Care Team Providers Care Medical Legal Investigator Name Role Phone Unavailable Primary Care Provider Unavailabl e Source Comments [facility] [employer],non-owned Affiliates and Associated Physician Practices is amultiple site organization consisting of ambulatory clinics and hospital sitesin [place], [place], [place] and [place]. This disclosure is being madepursuant to the Care Everywhere program and may not contain all information available regarding this patient. Last updated 17.[employer] Allergies No known active allergies Medications * [...] 3:24 PM CDT Height 175.3 cm (5' 9) 09/08/2018 3:24 PM CDT Body Mass Index 35.44 09/08/2018 3:24 PM CDT Plan of Treatment Health Maintenance Due Date Last Done Comments HIV SCREENING 2000 HEPATITIS C SCREENING 02/27/2003 DTAP/TDAP/TD VACCINES (1 - Tdap) 2004 HEPATITIS B VACCINE (1 of 3 - 19+ 3-dose series) 2004 PNEUMOCOCCAL VACCINE (1 of 2 - PCV) 2004 HPV VACCINE (1 - 3-dose SCDM series) 2012 COVID-19 VACCINE (1 - 2023-2 5 season) 2023 DEPRESSION SCREENING 02/06/2024 INFLUENZA VACCINE (#1) 2024 ZOSTER VACCINE (1 of 2) 2035 HIB VACCINE Aged Out No longer eligi ble based on patient's age to complete this topic MENINGOCOCCAL (Group B) VACC INE SHARED DECISION-MAKING Aged Out No longer eligibl e based on patient's age to complete this topic MENINGOCOCCAL GROUPS A/C/Y/W VACCINE Aged Out No longer eligible b ased on patient's age to complete this topic Insurance [facility] Address: [facility] [id number] [place] [address] SELF PAY NO INSURANCE Member Subscriber Plan / Payer (Ef fective for All Dates) Name:SAMMI Ramos Member ID:Not on file Relation to Subscriber:Not on file Name:SAMMI RAMOS Subscriber ID:Not on file (Home) Address: [address] [place] [id number] Payer ID:Not on file Group ID:Not on file Type:Self Pay Address: [facility]
[2024-09-09 17:15] VITALS: BP 144/94; PULSE 91; RESP 20; TEMP 37.2; O2SAT 97
--- NOTE | 2024-09-09 17:39 | ED.SKABFB ---
HPI - Skin/Abscess/Foreign Bdy General Chief complaint: Skin/Abscess/Foreign Body Stated complaint: poison doreen Time Seen by Provider: 09/09/24 17:40 Source: patient Mode of arrival: ambulatory Limitations: no limitations History of Present Illness HPI narrative: 39-year-old male presented for complaint of a rash to face, neck, arms, abdomen, groin, and legs. Onset yesterday. States the day prior to onset he was clearing weeds in the yard and thinks he has poison doreen. He has applied calamine lotion without improvement. Denies lip, tongue, or throat swelling, shortness of breath or wheezing. Denies changes to soap, detergent, lotion, or any other exposures. No one else in the house or any contacts with similar symptoms. Related Data Allergies Allergy/AdvReac Type Severity Reaction Status Date / Time No Known Allergies Allergy Unknown Verified 09/09/24 17:19 Review of Systems Review of Systems: CONSTITUTIONAL: Denies body aches, fever, chills, or sweats. EYES: Denies visual changes, redness, or discharge. ENT: Denies rhinorrhea, congestion CARDIOVASCULAR: Denies chest pain, palpitations, or edema. RESPIRATORY: Denies cough or dyspnea. GASTROINTESTINAL: Denies abdominal pain, nausea, vomiting, or diarrhea. SKIN: reports rash to body MUSCULOSKELETAL: Denies back pain, joint pain, or myalgia. NEUROLOGIC: Denies headache, numbness, tingling, or weakness. [facility] Past Medical History Medical History Chronic GERD PORFIRIO (obstructive sleep apnea) Hyperlipidemia Hypertension Psoriasiform dermatitis Psoriasis Surgical History Surgical History No pertinent past surgical history Family History Family History Father History of ETOH abuse Social History Social History Smoking packs per day: 1 Smoking cigarettes per day: 20.0 Smoking status: Current every day smoker Tobacco type: e-cigarettes/vaping Alcohol intake: never Drinks per week: 1 Alcohol use details: socially Substance use: never Lack of Transportation: No Lack of Food: Never True Current Housing: I Have Housing Concerned About Future Housing: No Difficulty Paying Gas/Electric Bills: No Difficulty Paying for Meds: No Currently Unemployed: No Education: High School Diploma/GED Living arrangements: with family Occupation/Education: occupation 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 Please see nursing chart for further information. There is no relevant family history pertinent to the presenting complaint Exam Narrative: GENERAL: Well-appearing HEAD: Normocephalic, atraumatic. EYES: conjunctivae clear, and EOMI. ENT: Mucous membranes moist. Oropharynx without edema, erythema or lesions. NECK: Supple. No lymphadenopathy CHEST: Clear to auscultation. HEART: Regular rate and rhythm. SKIN: Warm, dry. Scattered vesicles on erythematous base noted to bilateral forearms, neck, abdomen, and ankles c/w contact dermatitis. Face is flushed. NEURO: Alert and oriented x3. Course Course Emergency Course: Patient is aware of diagnosis, understands and agrees to treatment plan. Anticipatory guidance given. Patient agrees to follow-up as directed and is aware of reasons to seek care at the emergency department. Portions of this record may have been created with voice recognition software Level of Care: Express Care Visit Vital Signs Vital signs: Vital Signs Temperature 99.0 F 09/09/24 17:15 Pulse Rate 91 09/09/24 17:15 Respiratory Rate 20 09/09/24 17:15 Blood Pressure 144/94 H 09/09/24 17:15 Pulse Oximetry 97 09/09/24 17:15 Oxygen Delivery Room Air 09/09/24 17:15 Temperature 99.0 F 09/09/24 17:15 Pulse Rate 91 09/09/24 17:15 Respiratory Rate 20 09/09/24 17:15 Blood Pressure 144/94 H 09/09/24 17:15 Pulse Oximetry 97 09/09/24 17:15 Oxygen Delivery Room Air 09/09/24 17:15 Reviewed MDM - Skin/Abscess/Foreign Bdy MDM Narrative Medical decision making narrative: Discussed physical exam findings and reviewed prescriptions.. Advised supportive measures and signs/symptoms to go to the ER. Pt is appropriate for outpt treatment and f/u. Differential Diagnosis Differential diagnosis: Likely abscess of skin or subcutaneous tissue, viral exanthem, dermatophytosis, urticaria, herpes zoster, cellulitis, eczema, insect bites, impetigo and contact dermatitis Discharge Plan Discharge Clinical Impression: Contact dermatitis Patient Disposition: Home Condition: Stable Instructions: Poison Doreen (ED) Additional Instructions: Take steroids and Pepcid as directed. Benadryl every 8 hours as needed or you can take zyrtec according to package directions to reduce itching Cool compresses to the sites of itching, avoid hot water. or hot temperatures. Avoid scratching to reduce the risk of infection You can apply cream such as benadryl, calamine, or Doreen dry as needed to reduce itching Follow up with your primary care provider as needed in 1 week Go to the ER for worsening symptoms or concerns (lip, tongue, throat swelling/itching, trouble breathing etc) Patient Language: Croatian Prescriptions: New famotidine [Pepcid] 40 mg tablet 40 mg PO DAILY Qty: 10 0RF prednisone 20 mg tablet 20 mg PO DAILY Qty: 18 0RF Rx Instructions: take 3 tablets daily for 3 days, then 2 tablets daily for 3 days then 1 tablet daily for 3 days No Action lisinopril 10 mg tablet 10 mg PO DAILY Qty: 90 3RF pantoprazole 40 mg tablet,delayed release (DR/EC) 40 mg PO BID Qty: 60 3RF Follow-up/Referrals: Dee Bueno APRN [Primary Care Provider] -
== END 2024-09-09 17:50 | disposition home or self-care (01) ==
PROVIDERS: Emergency Provider Nurse Practitioner Family; PCP Nurse Practitioner Adult Health
DX: L25.9 Unspecified contact dermatitis, unspecified cause (principal); F17.290 Nicotine dependence, other tobacco product, uncomplicated; I10 Essential (primary) hypertension; E78.5 Hyperlipidemia, unspecified; K21.9 Gastro-esophageal reflux disease without esophagitis; L40.9 Psoriasis, unspecified
CPT/HCPCS: 99213; G0463

== ENCOUNTER 2024-10-13 13:51 | Outpatient (CLI) | payer OTHER, SELFPAY ==
--- OUTSIDE RECORDS SUMMARY | 2024-10-13 13:54 | XMS_ITS | Clinical Summary ---
Author Organization [facility] [employer] Address [address] [place] [address] Care Team Providers Care Trimmer Sorter Name Role Phone Unavailable Primary Care Provider Unavailabl e Source Comments [facility] [employer],non-owned Affiliates and Associated Physician Practices is amultiple site organization consisting of ambulatory clinics and hospital sitesin [place], [place], [place] and [place]. This disclosure is being madepursuant to the Care Everywhere program and may not contain all information available regarding this patient. Last updated 17.[employer] Allergies No known active allergies Medications * [...] VACCINE (1 - 3-dose SCDM series) 2012 DEPRESSION SCREENING 02/06/2024 COVID-19 VACCINE (1 - 2023-2 5 season) 2024 INFLUENZA VACCINE (#1) 2024 ZOSTER VACCINE (1 [...] age to complete this topic Insurance [facility] [place] Address: [facility] [address] [place] [address] SELF PAY NO INSURANCE Member Subscriber Plan / Payer (Ef fective for All Dates) Name:SAMMI Ramos Member ID:Not on file Relation to Subscriber:Not on file Name:SAMMI RAMOS Subscriber ID:Not on file (Home) Address: [address] [place] [phone] Payer ID:Not on file Group ID:Not on file Type:Self Pay Address: [facility]
[2024-10-13 18:44] LABS: Alanine Aminotransferase 56 U/L (6-50); Albumin Level 4.5 g/dL (3.5-5.1); Alkaline Phosphatase 74 U/L (38-126); Anion Gap 8 mmol/L (4-12); Aspartate Amino Transferase 70 U/L (17-59); Bilirubin,Total 1.2 mg/dL (0.2-1.3); Blood Urea Nitrogen 15 mg/dL (9-20); Calcium 9.4 mg/dL (8.4-10.2); Carbon Dioxide 28 mmol/L (22-30); Chloride 103 mmol/L (98-107); Cholesterol 218 mg/dL (0-200); Estimated Glomerular Filt Rate > 60; Glucose 114 mg/dL (65-110); HDL Direct 30 mg/dL; Potassium 4.0 mmol/L (3.4-5.0); Sodium 139 mmol/L (137-145); Total Protein 7.6 g/dL (6.3-8.2)
[2024-10-13 19:34] LABS: Hemoglobin A1C 5.8 % (<5.7)
[2024-10-13 19:38] LABS: Vitamin B12 553.0 pg/mL (239-931)
[2024-10-13 21:47] LABS: Triglycerides 699 mg/dL (<150)
== END 2024-10-13 13:52 | disposition home or self-care (01) ==
LOC: ANHBWCLAB 13:52
PROVIDERS: PCP Nurse Practitioner Adult Health; Visit Provider Nurse Practitioner Adult Health
DX: E78.5 Hyperlipidemia, unspecified (principal); Z51.81 Encounter for therapeutic drug level monitoring; Z79.899 Other long term (current) drug therapy
CPT/HCPCS: 36415; 80053; 80061; 82607; 83036

== ENCOUNTER 2024-12-08 08:01 | Outpatient (CLI) | payer OTHER, SELFPAY ==
--- OUTSIDE RECORDS SUMMARY | 2024-12-08 08:08 | XMS_ITS | Clinical Summary ---
Author Organization [facility] [employer] Address [address] [place] [address] Care Team Providers Care Biotechnologist Name Role Phone Unavailable Primary Care Provider Unavailabl e Source Comments [facility] [employer],non-owned Affiliates and Associated Physician Practices is amultiple site organization consisting of ambulatory clinics and hospital sitesin [place], [place], [place] and [place]. This disclosure is being madepursuant to the Care Everywhere program and may not contain all information available regarding this patient. Last updated 17.[employer] Allergies No known active allergies Medications * [...] age to complete this topic Insurance [facility] [place] Address: [facility] [id number] [place] [address] SELF PAY NO INSURANCE Member Subscriber Plan / Payer (Ef fective for All Dates) Name:SAMMI Ramos Member ID:Not on file Relation to Subscriber:Not on file Name:SAMMI RAMOS Subscriber ID:Not on file (Home) Address: [address] [place] [phone] Payer ID:Not on file Group ID:Not on file Type:Self Pay Address: [facility]
[2024-12-08 19:47] LABS: Alanine Aminotransferase 53 U/L (6-50); Albumin Level 5.0 g/dL (3.5-5.1); Alkaline Phosphatase 52 U/L (38-126); Aspartate Amino Transferase 92 U/L (17-59); Bilirubin,Total 1.4 mg/dL (0.2-1.3); Cholesterol 211 mg/dL (0-200); HDL Direct 34 mg/dL; Total Protein 8.1 g/dL (6.3-8.2); Triglycerides 214 mg/dL (<150)
== END 2024-12-08 08:02 | disposition home or self-care (01) ==
LOC: ANHBWCLAB 08:02
PROVIDERS: PCP Nurse Practitioner Adult Health; Visit Provider Nurse Practitioner Adult Health
DX: E78.1 Pure hyperglyceridemia (principal)
CPT/HCPCS: 36415; 80061; 80076